=== PATIENT | female | born 1945 | race Two or more races ===

== ENCOUNTER 2018-04-24 10:14 | Day surgery (SDC) | payer MEDICARE ==
[~2018-04-24 10:14] MED LIST: ACETAMINOPHEN 1,000 MG/100 ML BTL IV ONE; CEFAZOLIN 2 Gram 2 GM/50 ML BAG IVPB ONE
[2018-04-24] MEDS ORDERED: BUPIVACAINE 0.5% (5MG/ML) PF 30ML VIAL IVP ONE (10:15)
[2018-04-24] MEDS ORDERED: KETOROLAC 30 MG/ML VIAL IVP ONE (10:15)
[2018-04-24] MEDS ORDERED: ROCURONIUM BROMIDE 50MG/5ML VIAL IV ONE (10:15)
[2018-04-24] MEDS ORDERED: GLYCOPYRROLATE 0.2 MG/ML ML IV ONE (10:15)
[2018-04-24] MEDS ORDERED: EPINEPHRINE 1 MG/ML AMPUL SQ ONE (10:15)
[2018-04-24] MEDS ORDERED: ONDANSETRON HCL IV 4 MG/2 ML VIAL IVP ONE (10:15)
[2018-04-24] MEDS ORDERED: SEVOFLURANE 250 ML INH ONE (10:15)
[2018-04-24] MEDS ORDERED: MIDAZOLAM HCL 2MG/2ML VIAL IV ONE (10:15)
[2018-04-24] MEDS ORDERED: PROPOFOL 10 MG/ML VIAL IV ONE (10:15)
[2018-04-24] MEDS ORDERED: DEXAMETHASONE 4 MG/ML 1ML VIAL IVP ONE (10:15)
[2018-04-24] MEDS ORDERED: BUPIVACAINE LIPOSOME/PF 133MG/10ML VIAL IV ONE (10:15)
[2018-04-24] MEDS ORDERED: SUCCINYLCHOLINE 20 MG/ML 10ML IVP ONE (10:15)
[2018-04-24] MEDS ORDERED: FENTANYL PF 100MCG/2ML VIAL IV ONE (10:15)
[2018-04-24] MEDS ORDERED: LIDOCAINE 2% MDV (20MG/ML) 20ML VIAL IV ONE (10:15)
[2018-04-24] MEDS ORDERED: NEOSTIGMINE 1 MG/1 ML,10ML VIAL IV ONE (10:15)
--- NOTE | 2018-04-25 10:50 | Operative Note ---
DATE OF SERVICE: 04/24/2018. DATE OF SURGERY: 04/24/2018. Surgeon: Farzad Santiago DO. REFERRING PHYSICIAN: Schuyler Brown MD. PREOPERATIVE DIAGNOSES: 1. Tear of the left rotator cuff. 2. Impingement syndrome, left shoulder. POSTOPERATIVE DIAGNOSES: 1. Tear of the left rotator cuff. 2. Impingement syndrome, left shoulder. OPERATION: 1. Arthroscopic repair, left rotator cuff. 2. Arthroscopic subacromial decompression and acromioplasty, left shoulder. PROCEDURE: This 72-year-old female was taken to the operating room and placed in the supine position on the operating room table. A general anesthetic was administered, and the left shoulder was taken through a range of motion after anesthesia was induced, and she was found to have significant restriction of range of motion with abduction to approximately 60-70 degrees and external rotation at approximately 50-60 degrees, forward flexion to about 160 degrees. The patient was placed in beach chair position with all bony prominences well padded, head well secured, prepped and draped in the usual sterile fashion. Posterior portal was established in the glenohumeral joint of the left shoulder. An initial evaluation of the joint demonstrated extensive tearing of the rotator cuff and marked fraying of the edges of the cuff. There was fraying of the labrum. A [place] lesion was also identified. The biceps tendon appeared to be intact and did not appear to be abnormal. There was some minimal fraying of the subscapularis, but not torn. We then placed the scope in the subacromial space, and much better visualization of the cuff was then identified. We thoroughly debrided the subacromial bursa, and acromioplasty also performed, and then debridement of the fat to give us respectable exposure to the rotator cuff. We pulled on the rotator cuff, and there was not too much motion, but we felt that if we were able to free the cuff up, we would be able to at least do a [id number] repair. Therefore, we used an elevator to free up adhesions and scar from the undersurface and the superior surface of the rotator cuff, going from the supraspinatus around to the infraspinatus, and once this had been debrided, we were able to mobilize the cuff much better. We felt that we were only able to repair this in a [id number] fashion, and we debrided the tuberosity, and subsequently we felt that it was necessary to medialize the articular surface about 5 mm. It would give us a little more bony contact to secure the rotator cuff. Therefore, we used 3 #2 Fiberwire sutures in a [id number] fashion, and the most lateral stitch, the tails were left on the suture, and some mild traction was placed on this, and a suture anchor was placed in the tuberosity to anchor the cuff in this position. The wound was irrigated and suctioned. Instruments were removed. The portals were closed with 4-0 nylon suture. A sling was applied after sterile dressings had been applied. GROSS PATHOLOGY: Patient demonstrated a massive tear of the supraspinatus and infraspinatus tendons. There was a [place] lesion present anteriorly. Mild fraying of the labrum was present. 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 Chondrocalcinosis of the joint was also identified. NIECYD
== END 2018-04-24 14:05 | disposition home or self-care (01) ==
LOC: SUR 10:14
PROVIDERS: ATTEND Orthopaedic Surgery
DX: S46.012A Strain of muscle(s) and tendon(s) of the rotator cuff of left shoulder, initial encounter (principal); M75.42 Impingement syndrome of left shoulder; I10 Essential (primary) hypertension; E78.00 Pure hypercholesterolemia, unspecified
CPT/HCPCS: 29827; 29826; 01630; 64415; J1885; J2405; J3010; J0690; C9290; J0171; J0330; J2710